=== PATIENT | female | born 1990 | race Caucasian/White ===

== ENCOUNTER 2016-11-09 17:11 | Inpatient (IN) ==
[2016-11-09] MEDS ORDERED: SODIUM CHLORIDE 0.9% 500 ML IV STA (18:18)
[2016-11-09] MEDS ORDERED: CEFTAROLINE 600 MG in SODIUM CHLORIDE 0.9% 100 ML IV STA (18:18)
--- NOTE | 2016-11-09 18:32 | Emergency Department Note ---
Maria Del Rosario Choudhury Brittany, am scribing for, and in the presence of, Heriberto Santiago MD 18:29. Pamela Choudhury Charles R, MD, personally performed the services described in this documentation, ascribed by Shirley Mix in my presence, and it is both accurate and complete 832 . Arrival - Arrival Chief Complaint: Extremity Problem Stated Complaint: my arm ED Nursing Triage Note: Left arm pain x2 days after "shooting up meth and I missed." Redness and edema noted above left AC. Painful to flex/extend left arm. Mode of Arrival: Ambulatory Limitations: No Limitations Source: Patient Time Seen by Provider: 11/09/16 18:12 - History of Present Illness HPI Narrative: This is a 26 y/o white female,who presents to the ED with c/o left arm pain which started 2 days ago. She states she recently started using meth. Per pt, " I was shooting up meth and I think i missed my arm." She reports the arm is painful to the touch. She reports she recently started using meth to deal with the loss of her daughter. Pt reports she was sober when she lost her daughter. Pt has no other complaints/pain in the ED at this time. Pt has a PMHx of asthma and Chlamydia. Pt has had 2 C-sections. Pt is a current every day smoker and uses methamphetamine. It is unknown if the pt uses alcohol at this time. Onset (ago): day(s) (Started 2 days ago) Consistency: constant Severity: moderate Allergies/Adverse Reactions: Allergies Allergy/AdvReac Type Severity Reaction Status Date / Time No Known Allergies Allergy Verified 12/07/15 19:47 Home Medications: Home Medications Medication Instructions Recorded Confirmed Type Gabapentin Cap/Tab [Neurontin 300 mg PO DAILY 11/09/16 11/09/16 History Cap/Tab] Review of System - Review of System 12 point system: reviewed and no additional remarkable complaints except as stated - Review of System Musculoskeletal: Present: arm pain (Left arm pain ) Medical,Surgical,& Family Hx - Medical History Respiratory: History of: Asthma Reproductive: History of: Sexually Transmitted Disorders (chlamydia) - Surgical History Reproductive Surgeries: Surgical HX of;: Section (x2) - Social History Smoking Status: Current every day smoker Frequency of Alcohol Use: Unknown Type of Drug Use: Methamphetamine Exam Vital Signs: Vital Signs Temperature 100.2 F H 11/09/16 17:12 Pulse Rate 135 H 11/09/16 17:12 Respiratory Rate 22 11/09/16 17:12 Blood Pressure 110/81 11/09/16 17:12 O2 Sat by Pulse Oximetry 98 11/09/16 17:12 - General General appearance: alert, in no apparent distress - Head Head exam: Present: atraumatic, normocephalic, normal inspection - Eye Eye exam: Present: normal appearance, PERRL, EOMI - ENT ENT exam: Present: other (Poor oral hygiene ) - Neck Neck exam: Present: normal inspection, full ROM, trachea midline. Absent: tenderness, thyromegaly - Chest Chest inspection: Present: normal inspection, symmetric chest wall rise. Absent : tenderness, rash, abscess - Respiratory Respiratory exam: Present: normal lung sounds bilaterally. Absent: prolonged expiratory phase, rales, respiratory distress, rhonchi, stridor, wheezes - Cardiovascular Cardiovascular exam: Present: tachycardia, normal heart sounds. Absent: murmur , rubs, gallop, clicks - Abdominal Exam Abdominal exam: Present: soft. Absent: distention, tenderness, guarding, rebound, rigidity - Extremities Exam Extremities exam: Present: other (Left arm erythamthic, indurated, has needles tracks, has a 4x 6 area that is firm) - Back Exam Back exam: Present: normal inspection, full ROM. Absent: tenderness, muscle spasm, rashes - Neurological Exam Neurological exam: Present: alert, oriented X3, CN II-XII intact, normal gait, reflexes normal. Absent: motor sensory deficit - Psychiatric Psychiatric exam: Present: normal affect, normal mood. Absent: depressed, agitated, anxious, flat affect - Skin Skin exam: Present: warm, dry, intact, normal color. Absent: diaphoresis Course - Consultations Consultation #1: Dr. Laurent will admit patient for further evaluation with IV antibiotics Time: 19:41 Results - Labs CBC & BMP: 11/09/16 19:37 - Diagnostic Findings Procedure: Chest x-ray: report reviewed by me (Normal Chest X-ray) Disposition Clinical Impression: Cellulitis, Superficial thrombophlebitis, Intravenous drug abuse, Fever Case discussed with: patient Disposition: Still a Patient Condition: Stable Time of Disposition: 19:43
--- NOTE | 2016-11-09 18:45 | XRay Report ---
XR chest 2V Indication: Shortness of breath and fever. Chest 2 views: Comparison 06/23/2008. The heart size and mediastinal contour are normal. The lungs and pleural spaces are clear. Bones are unremarkable. Impression: Negative chest. PROCEDURE INTERPRETED AT [facility] DEPARTMENT OF RADIOLOGY Final Report Signed by: Darius Rosas M.D.
[2016-11-09] MEDS ORDERED: DIPH/TET/ACEL PERT BOOSTER VACCINE 0.5 ML VIAL IM ONE ×2 (19:40→19:45)
[2016-11-09] MEDS ORDERED: CEFTAROLINE 600 MG VIAL IV ONE (19:45)
[2016-11-09 19:48] LABS: Basophils % 0.4 % (0.0-0.8); Eosinophils # 0.2 10*3/uL (0.0-0.87); Hematocrit 35.9 VOL% (35.7-47.0); Immature Granulocytes % 0.3 %; Immature Granulocytes Absolute 0.02 #; Lymphocytes # 1.6 10*3/uL (1.4-4.0); Lymphocytes % 23.1 % (21.3-54.2); Mean Corpuscular HGB Conc 30.6 GM/DL (32-36); Mean Corpuscular Hemoglobin 25 PG (27-34); Mean Corpuscular Volume 81.6 FL (87-102); Mean Platelet Volume 10.2 FL (9.6-12.0); Monocytes # 0.8 10*3/uL (0.11-0.8); Neutrophils # 4.3 10*3/uL (1.4-7.4); Neutrophils % 61.2 % (38.7-73.9); Platelet Count 223 T/CUMM (130-400); Red Cell Distribution Width 18.9 % (9.3-17.3)
[2016-11-09 20:16] LABS: Albumin 3.7 G/DL (3.4-5.0); Bilirubin,Total 0.5 MG/DL (0.2-1.0); Calcium 8.5 MG/DL (8.5-10.1); Osmolality,Calculated 284.3 MOS/KG (273-304); Total Protein 7.7 G/DL (6.4-8.3)
[2016-11-09 20:20] LABS: Eosinophils 3 % (0-10); Lymphocytes 19 % (20-55); Segmented Neutrophils 71 % (50-85); Total Cells Counted 100
[2016-11-09 20:21] LABS: Platelet Estimate Normal
--- NOTE | 2016-11-09 20:29 | Hospitalist History & Physical ---
Assessment and Plan (1) Cellulitis Status: Acute Current Visit: Yes (2) Fever Status: Acute Current Visit: Yes (3) Intravenous drug abuse Status: Acute Current Visit: Yes (4) Superficial thrombophlebitis Status: Acute Assessment and plan: Plan for this patient #1 IV antibiotics #2 pain control #3 Tranxene for her anxiety #4 surgery consult Current Visit: Yes History of Present Illness Chief complaint: pain at injection site History of present illness: Ms. Todd is a 26 year old female past medical history of IV drug use was in his normal state of health till 2 days ago. She started shooting up math and missed the vein. She developed an area of erythema that was hot to touch and very tender. Patient was upset about losing custody of her daughter. Patient came to our hospital further evaluation. Patient seems quite agitated and I was consulted to admit her Home Medications Medication Instructions Recorded Confirmed Type Gabapentin Cap/Tab [Neurontin 300 mg PO DAILY 11/09/16 11/09/16 History Cap/Tab] Allergies Allergy/AdvReac Type Severity Reaction Status Date / Time No Known Allergies Allergy Verified 12/07/15 19:47 Medical,Surgical,& Family Hx - Medical History Respiratory: History of: Asthma Reproductive: History of: Sexually Transmitted Disorders (chlamydia) - Surgical History Reproductive Surgeries: Surgical HX of;: Section (x2) - Social History Smoking Status: Current every day smoker Frequency of Alcohol Use: Unknown Type of Drug Use: Methamphetamine 12 point system: reviewed and no additional remarkable complaints except as stated Exam - Constitutional Vitals: Period Temp Pulse Resp BP Sys/Feldman Pulse Ox Last 24 Hr 100.2 F 135 22 110/81 98 - General General appearance: alert, in no apparent distress - Head Head exam: Present: atraumatic, normocephalic, normal inspection - Eye Eye exam: Present: normal appearance, PERRL, EOMI - ENT ENT exam: Present: other (Poor oral hygiene ) - Neck Neck exam: Present: normal inspection, full ROM, trachea midline. Absent: tenderness, thyromegaly - Chest Chest inspection: Present: normal inspection, symmetric chest wall rise. Absent : tenderness, rash, abscess - Respiratory Respiratory exam: Present: normal lung sounds bilaterally. Absent: prolonged expiratory phase, rales, respiratory distress, rhonchi, stridor, wheezes - Cardiovascular Cardiovascular exam: Present: tachycardia, normal heart sounds. Absent: murmur , rubs, gallop, clicks - Abdominal Exam Abdominal exam: Present: soft. Absent: distention, tenderness, guarding, rebound, rigidity - Extremities Exam Extremities exam: Present: other (Left arm erythamthic, indurated, has needles tracks, has a 4x 6 area that is firm) - Back Exam Back exam: Present: normal inspection, full ROM. Absent: tenderness, muscle spasm, rashes - Neurological Exam Neurological exam: Present: alert, oriented X3, CN II-XII intact, normal gait, reflexes normal. Absent: motor sensory deficit - Psychiatric Psychiatric exam: Present: normal affect, normal mood. Absent: depressed, agitated, anxious, flat affect - Skin Skin exam: Present: warm, dry, intact, normal color. Absent: diaphoresis Results - Labs CBC & BMP: 11/09/16 19:37 11/09/16 19:37
[2016-11-09] MEDS ORDERED: ONDANSETRON 4 MG/2 ML VIAL IV PRN (20:43)
[2016-11-09] MEDS ORDERED: ACETAMINOPHEN 325 MG TABLET PO PRN (20:43)
[2016-11-09 20:56] LABS: Sedimentation Rate-Westergren 49 MM/HR (0-20)
[2016-11-09] MEDS ORDERED: ENOXAPARIN 40 MG/0.4 ML SYRINGE SUBCUT SCH (21:00)
[2016-11-09] MEDS: CLORAZEPATE 7.5 MG TABLET PO PRN (23:03)
[2016-11-10 05:26] LABS: Basophils % 0.5 % (0.0-0.8); Eosinophils # 0.2 10*3/uL (0.0-0.87); Eosinophils % 3.1 % (0.00-10.9); Hematocrit 33.4 VOL% (35.7-47.0); Hemoglobin 10.2 GM/DL (12.0-16.0); Immature Granulocytes % 0.3 %; Immature Granulocytes Absolute 0.02 #; Lymphocytes # 1.7 10*3/uL (1.4-4.0); Lymphocytes % 27.3 % (21.3-54.2); Mean Corpuscular HGB Conc 30.5 GM/DL (32-36); Mean Corpuscular Hemoglobin 25 PG (27-34); Mean Corpuscular Volume 82.1 FL (87-102); Mean Platelet Volume 10.5 FL (9.6-12.0); Monocytes # 0.7 10*3/uL (0.11-0.8); Monocytes % 11.2 % (1.7-12.7); Neutrophils # 3.5 10*3/uL (1.4-7.4); Neutrophils % 57.6 % (38.7-73.9); Platelet Count 201 T/CUMM (130-400); Red Blood Count 4.07 MC/CUMM (3.8-5.5); Red Cell Distribution Width 18.8 % (9.3-17.3); White Blood Count 6.1 T/CUMM (4-12)
[2016-11-10 05:48] LABS: Calcium 8.1 MG/DL (8.5-10.1); Osmolality,Calculated 288.8 MOS/KG (273-304)
[2016-11-10 06:13] LABS: Hypochromasia 2+; Microcytosis 1+
[2016-11-10] MEDS: CEFTAROLINE 600 MG in SODIUM CHLORIDE 0.9% 100 ML IV SCH ×3 (06:24→18:46)
[2016-11-10] MEDS ORDERED: PANTOPRAZOLE 40 MG TABLET PO SCH (09:00)
[2016-11-10] MEDS ORDERED: GABAPENTIN 300 MG CAPSULE PO SCH (09:00)
--- NOTE | 2016-11-10 10:44 | Hospitalist Progress Note ---
Assessment and Plan (1) Cellulitis Status: Acute Current Visit: Yes (2) Fever Status: Acute Current Visit: Yes (3) Intravenous drug abuse Status: Acute Current Visit: Yes (4) Superficial thrombophlebitis Status: Acute Assessment and plan: Plan for this patient #1 IV antibiotics #2 pain control #3 Tranxene for her anxiety #4 surgery consult 11/10/16 still awaiting surgery to see the patient. These type wounds have the tendency to develop into abscesses. At this time it does not appear to be an abscess and it does seem like it's decreasing in size. Current Visit: Yes Hospitalist: Subjective Interval history: Patient says her arm feels much better. Exam - Constitutional Vitals: Period Temp Pulse Resp BP Sys/Feldman Pulse Ox Last 24 Hr 98.1 F-100.2 F 107-135 18-22 104-110/62-81 98-99 - General General appearance: alert, in no apparent distress - Head Head exam: Present: atraumatic, normocephalic, normal inspection - Eye Eye exam: Present: normal appearance, PERRL, EOMI - ENT ENT exam: Present: other (Poor oral hygiene ) - Neck Neck exam: Present: normal inspection, full ROM, trachea midline. Absent: tenderness, thyromegaly - Chest Chest inspection: Present: normal inspection, symmetric chest wall rise. Absent : tenderness, rash, abscess - Respiratory Respiratory exam: Present: normal lung sounds bilaterally. Absent: prolonged expiratory phase, rales, respiratory distress, rhonchi, stridor, wheezes - Cardiovascular Cardiovascular exam: Present: tachycardia, normal heart sounds. Absent: murmur , rubs, gallop, clicks - Abdominal Exam Abdominal exam: Present: soft. Absent: distention, tenderness, guarding, rebound, rigidity - Extremities Exam Extremities exam: Present: other (swelling and erythema have gone down as compared to last night) - Back Exam Back exam: Present: normal inspection, full ROM. Absent: tenderness, muscle spasm, rashes - Neurological Exam Neurological exam: Present: alert, oriented X3, CN II-XII intact, normal gait, reflexes normal. Absent: motor sensory deficit - Psychiatric Psychiatric exam: Present: normal affect, normal mood. Absent: depressed, agitated, anxious, flat affect - Skin Skin exam: Present: warm, dry, intact, normal color. Absent: diaphoresis Results - Labs CBC & BMP: 11/10/16 05:14 11/10/16 05:14
--- NOTE | 2016-11-10 15:03 | General Surgery Consult Note ---
Assessment and Plan - Time spent with patient Time spent with patient: Less than 30 minutes (1) Cellulitis Status: Acute Assessment and plan: The patient was not very cooperative with my exam or in giving history. She would not talk to me anymore after I told her that I did not think that she should leave the hospital. I also explained to her that these often require surgical drainage and I feel that there is a good chance that there is an abscess forming in this location. She states that she is not going to have surgery at this time and feels it is getting better with antibiotics. We can continue the antibiotics but this needs to be monitored as I feel there is a high likelihood that it will require surgical drainage. Current Visit: Yes Qualifiers: Site of cellulitis: extremity History of Present Illness Chief complaint: arm infection History of present illness: Ms. Todd is a 26 year old female Who injected her left antecubital fossa with methamphetamine about 3 days ago. She gradually developed pain and swelling in this location was admitted yesterday evening. She describes the pain as severe at that time that the pain is better now. She states that the pain and swelling is now only mild in severity and she states that it feels better and she wants to go home. Apparently she tried to leave earlier today and went to the emergency room requesting that they remove her IV. Home Medications Medication Instructions Recorded Confirmed Type Gabapentin Cap/Tab [Neurontin 300 mg PO DAILY 11/09/16 11/09/16 History Cap/Tab] Allergies Allergy/AdvReac Type Severity Reaction Status Date / Time No Known Allergies Allergy Verified 12/07/15 19:47 Medical,Surgical,& Family Hx - Medical History Psychological: History of: Depression HEENT: History of: Dental Problems (dentures) Respiratory: History of: Asthma Reproductive: History of: Sexually Transmitted Disorders (chlamydia) - Surgical History Reproductive Surgeries: Surgical HX of;: Section (x2), Tubal Ligation - Family History Family History: Reports;: Family Diabetes (father) - Social History Smoking Status: Current every day smoker Frequency of Alcohol Use: Unknown Type of Drug Use: Marijuana, Methamphetamine ROS unobtainable: other (patient would not answer questions) Exam - Constitutional Vitals: Period Temp Pulse Resp BP Sys/Feldman Pulse Ox Last 24 Hr 98.1 F-100.2 F 107-135 18-22 104-110/62-81 98-100 General appearance: no acute distress - Head Head exam: Present: normocephalic - ENT Mouth exam: Present: normal voice - Neck Neck exam: Present: trachea midline - Respiratory Respiratory exam: Absent: accessory muscle use - Extremities Exam Extremities exam: Present: other (there is a 3 cm exquisitely tender mass just above the antecubital fossa over the course of the cephalic vein. There is some associated erythema that is localized. There is no fluctuance and there is no crepitus.) Results - Labs CBC & BMP: 11/10/16 05:14 11/10/16 05:14 Lab Results: I have reviewed the past 24 hour labs
[2016-11-10 16:06] VITALS: BP 151/76
[2016-11-10] MEDS: CLORAZEPATE 7.5 MG TABLET PO PRN (17:24)
== END 2016-11-10 19:09 | disposition left against medical advice (07) | DRG 603 ==
LOC: N.ED 17:11 → N.EDINP 20:33 → N.5E 21:56
PROVIDERS: ADMIT Internal Medicine; ATTEND Internal Medicine